=== PATIENT | female | born 1995 | race Asian ===

== ENCOUNTER 2019-08-15 00:59 | Emergency (ER) | payer MEDICAID ==
[~2019-08-15] VITALS: Ht 160 cm; Wt 53.5 kg
[2019-08-15 01:15] VITALS: Ht 160 cm; Wt 53.5 kg
[2019-08-15 01:54] VITALS: BP 112/87
== END 2019-08-15 02:32 | disposition home or self-care (01) ==
LOC: ED 00:59
DX: R30.0 Dysuria (principal); R39.198 Other difficulties with micturition
CPT/HCPCS: 87491; 87591

== ENCOUNTER 2019-10-02 19:21 | Emergency (ER) | payer MEDICAID ==
[~2019-10-02] VITALS: Ht 160 cm; Wt 54.9 kg
[2019-10-02 19:29] VITALS: Ht 160 cm; Wt 54.9 kg
[2019-10-02 20:11] LABS: microscopic required? NO
[2019-10-02 20:21] LABS: UA SPECIFIC GRAVITY 1.025 (1.005-1.035); urine erythrocyte NEGATIVE (NEGATIVE)
[2019-10-02 20:44] VITALS: BP 120/93
== END 2019-10-02 20:44 | disposition home or self-care (01) ==
LOC: ED 19:21
PROVIDERS: Student in an Organized Health Care Education/Training Program
DX: N34.2 Other urethritis (principal)
CPT/HCPCS: 87491; 87591; J0696